=== PATIENT | female | born 1975 | race Caucasian/White ===

== ENCOUNTER 2024-09-14 01:29 | Outpatient (CLI) | payer BC, SELFPAY ==
--- NOTE | 2024-09-14 13:21 | DI.RAD_ITS ---
Exam(s) XR FOOT LT COMPLETE EXAM: XR FOOT LT COMPLETE CLINICAL HISTORY: Left foot pain,M79.672. TECHNIQUE: 2D digital imaging was performed of the left foot. Three images were obtained. AP, oblique and lateral views were obtained. COMPARISON: No exams were available for comparison FINDINGS: BONES: No acute fracture is present. There is an erosion at the medial aspect of the head of the 1st metatarsal. There is mild associated soft tissue swelling. The 1st MTP joint is well maintained. The JOINTS: No dislocation present. The joint spaces are otherwise well maintained. SOFT TISSUE: Mild soft tissue swelling adjacent to the head of the 1st metatarsal. IMPRESSION: Erosion involving the medial aspect of the head of the 1st metatarsal with adjacent soft tissue swelling. Differential considerations include gout, other inflammatory arthritis or infection/osteomyelitis. DATA REPOSITORY: RADIATION DOSE DELIVERED:
== END 2024-09-14 01:49 ==
PROVIDERS: PCP Physician Assistant Medical; Visit Provider Podiatrist
DX: M79.672 Pain in left foot (principal)
CPT/HCPCS: 73630